=== PATIENT | male | born 1945 | race Hispanic/Latino ===

== ENCOUNTER 2017-04-14 08:34 | Outpatient (RCR) | payer MEDICARE, OTHER ==
[~2017-04-14 08:34] MED LIST: ASPIRIN EC81 MG PO; FINASTERIDE5 MG PO; LIDOCAINE VISC 2% SOLN 15 ML UDC ONE; LISINOPRIL10 MG PO; MINERAL OIL/PETROLAT/GLYCERI 6OZ BTL ONE; TAMSULOSIN HCL0.4 MG PO; TOPROL XL25 MG PO
[2017-04-14] MEDS ORDERED: LIDOCAINE VISC 2% SOLN 15 ML UDC ONE (14:04)
[2017-04-14] MEDS ORDERED: MINERAL OIL/PETROLAT/GLYCERI 6OZ BTL ONE (14:04)
== END 2017-05-02 ==
LOC: WCC 08:34
PROVIDERS: ATTEND Family Medicine
DX: T81.89XA Other complications of procedures, not elsewhere classified, initial encounter (principal); Y84.8 Other medical procedures as the cause of abnormal reaction of the patient, or of later complication, without mention of misadventure at the time of the procedure; E11.40 Type 2 diabetes mellitus with diabetic neuropathy, unspecified; E11.65 Type 2 diabetes mellitus with hyperglycemia; L03.116 Cellulitis of left lower limb; I79.8 Other disorders of arteries, arterioles and capillaries in diseases classified elsewhere; I87.2 Venous insufficiency (chronic) (peripheral); B96.89 Other specified bacterial agents as the cause of diseases classified elsewhere
CPT/HCPCS: 15271; Q4117

== ENCOUNTER → 2017-06-02 | Outpatient (RCR) | payer MEDICARE, OTHER ==
[~2017-06-02] MED LIST changes: -MINERAL OIL/PETROLAT/GLYCERI 6OZ BTL ONE
== END ==
LOC: WCC 05-05 08:30
PROVIDERS: ATTEND Family Medicine
DX: T81.89XA Other complications of procedures, not elsewhere classified, initial encounter (principal); Y84.8 Other medical procedures as the cause of abnormal reaction of the patient, or of later complication, without mention of misadventure at the time of the procedure; E11.65 Type 2 diabetes mellitus with hyperglycemia; E11.40 Type 2 diabetes mellitus with diabetic neuropathy, unspecified; L03.116 Cellulitis of left lower limb; S91.002A Unspecified open wound, left ankle, initial encounter; R60.0 Localized edema; I87.2 Venous insufficiency (chronic) (peripheral); I79.8 Other disorders of arteries, arterioles and capillaries in diseases classified elsewhere; B96.89 Other specified bacterial agents as the cause of diseases classified elsewhere; L25.1 Unspecified contact dermatitis due to drugs in contact with skin
CPT/HCPCS: 15271; 97597; G0463; Q4117

== ENCOUNTER → 2017-06-30 | Outpatient (RCR) | payer MEDICARE, OTHER ==
[~2017-06-30] MED LIST changes: -LIDOCAINE VISC 2% SOLN 15 ML UDC ONE; +MUPIROCIN 2% OINT 22 GM TUBE ONE
== END ==
LOC: WCC 06-16 08:52
PROVIDERS: ATTEND Family Medicine
DX: T81.89XA Other complications of procedures, not elsewhere classified, initial encounter (principal); Y84.8 Other medical procedures as the cause of abnormal reaction of the patient, or of later complication, without mention of misadventure at the time of the procedure; E11.65 Type 2 diabetes mellitus with hyperglycemia; E11.40 Type 2 diabetes mellitus with diabetic neuropathy, unspecified; L03.116 Cellulitis of left lower limb; I87.2 Venous insufficiency (chronic) (peripheral); I79.8 Other disorders of arteries, arterioles and capillaries in diseases classified elsewhere; B96.89 Other specified bacterial agents as the cause of diseases classified elsewhere
CPT/HCPCS: 36415; 82948; 87071; 87075; 87205

== ENCOUNTER 2017-07-21 08:19 | Outpatient (RCR) | payer MEDICARE, OTHER ==
[~2017-07-21 08:19] MED LIST changes: +LIDOCAINE VISC 2% SOLN 15 ML UDC ONE; -MUPIROCIN 2% OINT 22 GM TUBE ONE
== END 2017-07-31 ==
LOC: WCC 08:19
PROVIDERS: ATTEND Family Medicine
DX: T81.89XA Other complications of procedures, not elsewhere classified, initial encounter (principal); Y84.8 Other medical procedures as the cause of abnormal reaction of the patient, or of later complication, without mention of misadventure at the time of the procedure; E11.40 Type 2 diabetes mellitus with diabetic neuropathy, unspecified; E11.65 Type 2 diabetes mellitus with hyperglycemia; I79.8 Other disorders of arteries, arterioles and capillaries in diseases classified elsewhere; I87.2 Venous insufficiency (chronic) (peripheral)
CPT/HCPCS: 36415; 82948

== ENCOUNTER 2017-08-25 08:22 | Outpatient (RCR) | payer MEDICARE, OTHER ==
[~2017-08-25 08:22] MED LIST changes: -LIDOCAINE VISC 2% SOLN 15 ML UDC ONE; +MUPIROCIN 2% OINT 22 GM TUBE ONE
[2017-08-30] MEDS ORDERED: PRAVASTATIN SOD20 MG PO (18:07)
[2017-08-30] MEDS ORDERED: PLAVIX75 MG PO (18:07)
[2017-08-30] MEDS ORDERED: HYDROCHLOROTHIA25 MG PO (18:07)
== END 2017-08-30 ==
LOC: WCC 08:22
PROVIDERS: ATTEND Family Medicine
DX: Y84.8 Other medical procedures as the cause of abnormal reaction of the patient, or of later complication, without mention of misadventure at the time of the procedure (principal); E11.65 Type 2 diabetes mellitus with hyperglycemia; E11.40 Type 2 diabetes mellitus with diabetic neuropathy, unspecified; E78.00 Pure hypercholesterolemia, unspecified; I79.8 Other disorders of arteries, arterioles and capillaries in diseases classified elsewhere; I87.2 Venous insufficiency (chronic) (peripheral)
CPT/HCPCS: 36415; 82948

== ENCOUNTER → 2017-08-31 | Day surgery (SDC) | payer MEDICARE, OTHER ==
[2017-08-30 16:04] LABS: BASOPHILS % 0.7 % (0.0-1.0); EOSINOPHILS # (AUTO) 0.2 (0.0-0.4); EOSINOPHILS % 2.8 % (0.0-6.0); HEMATOCRIT 39.1 % (38.2-49.6); HEMOGLOBIN 13.5 g/dL (14.0-18.0); LYMPHOCYTES # (AUTO) 1.9 (1.0-3.2); LYMPHOCYTES % 30.5 % (18.0-39.1); MEAN CORPUSCULAR HEMOGLOBIN 30.7 pg (28-32); MEAN CORPUSCULAR HGB CONC 34.5 g/dL (31-35); MEAN CORPUSCULAR VOLUME 88.9 fL (81-99); MONOCYTES # (AUTO) 0.6 (0.2-0.8); MONOCYTES % 9.5 % (4.4-11.3); NEUTROPHILS # (AUTO) 3.4 (2.1-6.9); PLATELET COUNT 208 x10e3/uL (140-360); RED CELL DISTRIBUTION WIDTH 13.5 % (11.7-14.4)
[2017-08-30 16:31] LABS: ALANINE AMINOTRANSFERASE 16 IU/L (0-55); ALBUMIN/GLOBULIN RATIO 1.1 (0.8-2.0); ALKALINE PHOSPHATASE 56 IU/L (40-150); ANION GAP 10.3 mmol/L (8-16); BLOOD UREA NITROGEN 24 mg/dL (7-26); BUN/CREATININE RATIO 22 (6-25); CALCIUM 10.1 mg/dL (8.4-10.2); CARBON DIOXIDE 25 mmol/L (22-29); CHLORIDE 108 mmol/L (98-107); CHOL/HDL RATIO 4.4 (3.9-4.7); CHOLESTEROL 140 MD/DL (0-199); CREATININE, SERUM 1.09 mg/dL (0.72-1.25); EST GLOMERULAR FILTRATION RATE > 60 ML/MIN (60-); GLUCOSE 97 mg/dL (74-118); HDL CHOLESTEROL 32 MG/DL (40-60); LDL CHOLESTEROL 86 MG/DL (60-130); POTASSIUM 4.3 mmol/L (3.5-5.1); SODIUM 139 mmol/L (136-145); TRIGLYCERIDES 112 MG/DL (0-149)
[2017-08-31] VITALS (12 sets, daily range): BP systolic 110–144; BP diastolic 59–94
[~2017-08-31] VITALS: Ht 172.7 cm; Wt 94.3 kg
[~2017-08-31] MED LIST changes: +ALPRAZOLAM 0.5 MG TAB ONE; +DIPHENHYDRAMINE HCL 25 MG CAP ONE; +FENTANYL CITRATE/PF 100MCG/2 ML INJ ONE; +HEPARIN SOD (PORCINE) 1000 UNIT/ML 30ML ONE; +HEPARIN SOD/SOD CHLORIDE 2,000 ML ONE; +HYDROCHLOROTHIA25 MG PO; +IOPAMIDOL 370 MG/ML 200 ML INFUS..BTL INJ ONE; +LIDOCAINE HCL 2% LOCAL 20 ML VIAL ONE; +MIDAZOLAM HCL 2 MG/2 ML VIAL ONE; -MUPIROCIN 2% OINT 22 GM TUBE ONE; +NITROGLYCERIN/D5W 200 MCG/ML 250 ML ONE; +PLAVIX75 MG PO; +PRAVASTATIN SOD20 MG PO; +SODIUM CHLORIDE 0.9% 1000ML 1,000 ML ONE; +VERAPAMIL HCL 2.5 MG/ML 2 ML VIAL ONE
--- OUTSIDE RECORDS SUMMARY | 2017-08-31 12:35 | XMS REPORT ---
Author Author [facility] Address Unknown Phone Unavailable Care Team Providers Care Compressor Station Engineer Chief Name Role Phone SUNNY STEINBERG Unavailable Unavailable Problems This patient has no known problems. Allergies, Adverse Reactions, Alerts This patient has no known allergies or adverse reactions. Medications This patient has no known medications. Results Test Description Test Time Test Comments Text Results Atomic Results Result Comments ANKLE 3+ VIEWS LEFT [place] [id number] [place] [id number] Patient Name: GRACIELA MÉNDEZ MR #: [id number] : 1945 Age/Sex: 71/M Req # : [id number] [facility] Physician: Ordered by: SUNNY STEINBERG MD Report #: [id number] Location: [facility] Room/Bed: Procedure: [id number] DX/ANKLE 3+ VIEWS LEFT Exam Date: 01/27/17 Exam Time : 1300 REPORT STATUS: Signed PROCEDURE: ANKLE 3+ VIEWS LEFT INDICATION: Osteomyelitis COMPARISON: 01/22/16 FINDINGS: Unchanged distal left fibular and talar old fracture/deformities with loss of soft tissues of the lateral distal leg. No periosteal reaction, erosion, or abnormal soft tissue calcification. No acute fracture or dislocation. Small dorsal calcaneal spur. CONCLUSION: No Change from prior exam. No definite signs of osteomyelitis. If there is high clinical concern, consider obtaining MRI for more accurate evaluation for osteomyelitis. Dictated by: Shola Chen M.D. on 01/27/2017 at 13:42 Electronically approved by: Shola Chen M.D. on 01/27/2017 at 13:42 Dictated By: SHOLA CHEN MD 1342 Transcribed By: MARY ALICE on 01/27/17 1342 COPY TO: SUNNY STEINBERG MD
--- OUTSIDE RECORDS SUMMARY | 2017-08-31 12:35 | XMS REPORT | Continuity of Care Document ---
Author Author [facility] Organization [facility] Address [address] [place] [address] Phone Unavailable Care Team Providers Care Director Media Name Role Phone SUSANA FERRER MD PCP Insurance Providers Guarantor John Paul Benedict Address [address] [place] [address] Email PTDECLINED Payer [employer] Policy Number [id number] Subscriber's Name John Paul Benedict Relationship 18 Self / Same As Patient Group Number [id number] Group Name RETIRED Effective Date 12 Payer Medicare A & B Policy Number [id number] Subscriber's Name BenedictJohn Paul Jackman Relationship 18 Self / Same As Patient Group Number [id number] Group Name RETIRED Effective Date 12 Payer [facility] Policy Number [id number] Subscriber's Name BenedictJohn Paul Jackman Relationship 18 Self / Same As Patient Advance Directives Directive Response Recorded Date/Time Does the patient have an advance directive? No 01/18/14 7:13pm If yes, is advance directive on file with [facility]? No 01/18/14 7:13pm If not on file with [facility] will patient provide a copy? No 01/18/14 7:13pm Do you have a Directive to Physician? No 08/10/17 11:46am Do you have a Medical Power of Reconciliation Analyst? No 08/10/17 11:46am Do you have an out of hospital Do Not Resuscitate Order? No 08/10/17 11:46am Do you have any special needs we should be aware of? No 08/10/17 11:46am Do you have a support person here with you today? No 08/10/17 11:46am Did patient receive Notice of Privacy Practices? Yes 08/10/17 11:46am Did patient receive patient rights and responsibilities? Yes 08/10/17 11:46am Problems No problem information available. Medications Current Home Medications Medication Dose Units Route Directions Days Qty Instructions Start Date Aspirin (Aspirin Ec) 81 Mg Tablet.dr 81 Mg Oral Daily 30 Tab Clopidogrel Bisulfate (Plavix) 75 Mg Tablet 75 Mg Oral Daily 30 Tab Finasteride 5 Mg Tablet 5 Mg Oral Daily 30 Tab Hydrochlorothiazide 25 Mg Tablet 12.5 Mg Oral Daily 30 Tab Lisinopril 10 Mg Tablet 10 Mg Oral Daily 30 Tab Metoprolol Succinate (Toprol Xl) 25 Mg Tab.er.24h 25 Mg Oral Daily 30 Tab Pravastatin Sodium 20 Mg Tablet 20 Mg Oral Daily Tamsulosin Hcl 0.4 Mg Cap.er.24h Oral Social History No social history information available. Hospital Discharge Instructions No hospital discharge instruction information available. Plan of Care Prescriptions See Medication Section Functional Status No functional status information available. Allergies, Adverse Reactions, Alerts No known allergies. Immunizations No immunization information available. Vital Signs No vital sign information available. Results Laboratory Results Test Name Result Units Flags Reference Collection Date/Time Result Date/ Time Comments White Blood Count 5.63 x10e3/uL 4.8-10.8 01/06/2017 8:35am 01/06/2017 11:34am Red Blood Count 3.92 x10e6/uL L 4.3-5.7 01/06/2017 8:35am 01/06/2017 11: 34am Hemoglobin 12.4 g/dL L 14.0-18.0 01/06/2017 8:35am 01/06/2017 11:34am Hematocrit 35.7 % L 38.2-49.6 01/06/2017 8:35am 01/06/2017 11:34am Mean Corpuscular Volume 91.1 fL 81-99 01/06/2017 8:01/06/2017 11: 34am Mean Corpuscular Hemoglobin 31.6 pg 28-32 01/06/2017 8:3501/06/2017 11:34am Mean Corpuscular Hemoglobin Concent 34.7 g/dL -35 01/06/2017 8:01/06/2017 11:34am Red Cell Distribution Width 13.2 % 11.7-14.4 01/06/2017 8:2016 11:34am Platelet Count 217 x10e3/uL 140-360 01/06/2017 8:01/06/2017 11: 34am Neutrophils (%) (Auto) 63.7 % 38.7-80.0 01/06/2017 8:01/06/2017 11 :34am Lymphocytes (%) (Auto) 23.8 % 18.0-39.1 01/06/2017 8:01/06/2017 11 :34am Monocytes (%) (Auto) 9.1 % 4.4-11.3 01/06/2017 8:01/06/2017 11: 34am Eosinophils (%) (Auto) 2.3 % 0.0-6.0 01/06/2017 8:01/06/2017 11: 34am Basophils (%) (Auto) 0.7 % 0.0-1.0 01/06/2017 8:01/06/2017 11: 34am IM GRANULOCYTES % 0.4 % 0.0-1.0 01/06/2017 8:01/06/2017 11:34am Neutrophils # (Auto) 3.6 2.1-6.9 01/06/2017 8:01/06/2017 11: 34am Lymphocytes # (Auto) 1.3 1.0-3.2 01/06/2017 8:3501/06/2017 11: 34am Monocytes # (Auto) 0.5 0.2-0.8 01/06/2017 8:3501/06/2017 11:34am Eosinophils # (Auto) 0.1 0.0-0.4 01/06/2017 8:3501/06/2017 11: 34am Basophils # (Auto) 0.0 0.0-0.1 01/06/2017 8:3501/06/2017 11:34am Absolute Immature Granulocyte (auto 0.02 x10e3/uL 0-0.1 01/06/2017 8: 3501/06/2017 11:34am Sodium Level 137 mmol/L 136-145 01/06/2017 8:3501/06/2017 12:00pm Potassium Level 4.2 mmol/L 3.5-5.1 01/06/2017 8:3501/06/2017 12: 00pm Chloride Level 107 mmol/L 98-107 01/06/2017 8:3501/06/2017 12:00pm Carbon Dioxide Level 22 mmol/L 22-29 01/06/2017 8:3501/06/2017 12: 00pm Anion Gap 12.2 mmol/L 8-16 01/06/2017 8:3501/06/2017 12:00pm Blood Urea Nitrogen 26 mg/dL 7-26 01/06/2017 8:3501/06/2017 12:00pm Creatinine 1.16 mg/dL 0.72-1.25 01/06/2017 8:3501/06/2017 12:00pm BUN/Creatinine Ratio 22 6-25 01/06/2017 8:3501/06/2017 12:00pm Estimat Glomerular Filtration Rate > 60 ML/MIN 60- 01/06/2017 8:35 12:00pm Ranges were taken from the National Kidney Disease Education Program and the National Kidney Foundation literature. Reference ranges: 60 or greater: Normal 16-59 (for 3 consecutive months): Chronic kidney disease 15 or less: Kidney failure Glucose Level 93 mg/dL 74-118 01/06/2017 8:3501/06/2017 12:00pm Calcium Level 9.4 mg/dL 8.4-10.2 01/06/2017 8:3501/06/2017 12:00pm Total Bilirubin 0.9 mg/dL 0.2-1.2 01/06/2017 8:3501/06/2017 12:00pm Aspartate Amino Transf (AST/SGOT) 16 IU/L 5-34 01/06/2017 8:352016 12:00pm Alanine Aminotransferase (ALT/SGPT) 17 IU/L 0-55 01/06/2017 8:35am 10/2016 12:00pm Total Protein 7.2 g/dL 6.5-8.1 01/06/2017 8:35am 01/06/2017 12:00pm Albumin 4.0 g/dL 3.5-5.0 01/06/2017 8:35am 01/06/2017 12:00pm Globulin 3.2 g/dL 2.3-3.5 01/06/2017 8:35am 01/06/2017 12:00pm Albumin/Globulin Ratio 1.3 0.8-2.0 01/06/2017 8:35am 01/06/2017 12: 00pm Alkaline Phosphatase 55 IU/L 40-150 01/06/2017 8:35am 01/06/2017 12: 00pm Prealbumin 27 mg/dL 9-32 01/06/2017 8:35am 01/08/2017 5:58am Performed at: - [facility] [id number] Body Shop Mechanic: Ousmane Gaytan MD, Phone: [phone] Bedside Glucose 93 mg/dL 70-120 08/11/2017 8:37am 08/11/2017 1:56pm Meter ID: [id number] Procedures No procedure information available. Encounters Encounter Location Arrival/Admit Date Discharge/Depart Date Attending Provider Discharged [facility] 08/25/17 8:22am 08/30/17 11:59pm SUNNY STEINBERG MD Discharged [facility] 07/07/17 8:06am 07/31/17 11:59pm SUNNY STEINBERG MD Discharged [facility] 06/16/17 8:52am 06/30/17 11:59pm SUNNY STEINBERG MD Discharged [facility] 05/05/17 8:30am 06/02/17 11:59pm SUNNY STEINBERG MD Discharged [facility] 04/07/17 8:26am 05/02/17 11:59pm SUNNY STEINBERG MD Discharged [facility] 03/03/17 8:21am 04/01/17 11:59pm SUNNY STEINBERG MD Discharged [facility] 02/03/17 8:47am 03/02/17 11:59pm SUNNY STEINBERG MD Registered Clinic [facility] 01/27/17 12:46pm SUNNY STEINBERG MD Discharged [facility] 01/06/17 8:02am 01/30/17 11:59pm SUNNY STEINBERG MD
--- NOTE | 2017-08-31 16:27 | Operative Report ---
DATE OF PROCEDURE: August 31, 2017 INDICATIONS: Coronary artery disease, abnormal stress test with apical ischemia. PROCEDURES PERFORMED 1. Left heart catheterization, selective coronary angiography. 2. Percutaneous transluminal coronary angioplasty and drug-eluting stent placement to the distal left anterior descending artery. 3. Deployment of right wrist transradial band. COMPLICATIONS: None. RECOMMENDATIONS: Dual antiplatelet therapy for life. Access was obtained in the right radial artery using ultrasound guidance. A 5-Mongolian sheath was placed. Diagnostic coronary angiogram revealed patent left main. Left anterior descending artery proximal stents were widely patent. Distal left anterior descending artery 80% focal type-A lesion. The circumflex stents were widely patent. Right coronary artery proximal 50%. Remaining vessel had diffuse 20% to 30% stenosis. A decision was made to intervene on the left anterior descending artery. The patient received intravenous heparin with an ACT of 314. The left main was cannulated using a 5-Mongolian EBU 3.375 guiding catheter. A short Runthrough wire was advanced across the lesion for support. Predilatation with a 2-mm balloon following which a single 2.25 x 12 mm Synergy stent was deployed at 20 atmospheres. Excellent end result. Less than 10% residual stenosis and JEWEL-3 flow. No complications. Guidewire and sheath were removed and TR band applied. The patient was discharged home the same day. Job#: [id number]
== END | disposition home or self-care (01) ==
LOC: CATH LAB 12:32
PROVIDERS: ATTEND Internal Medicine Interventional Cardiology
DX: I25.119 Atherosclerotic heart disease of native coronary artery with unspecified angina pectoris (principal); R94.39 Abnormal result of other cardiovascular function study; Z95.5 Presence of coronary angioplasty implant and graft; Z79.02 Long term (current) use of antithrombotics/antiplatelets; Z79.82 Long term (current) use of aspirin; Z01.812 Encounter for preprocedural laboratory examination
CPT/HCPCS: 93454; C9600; 36140; 36415; 77002; 80053; 80061; 85025; 92920; 93458; C1769; J1644; J2001; J2250; J7030; Q9967

== ENCOUNTER 2017-09-15 08:35 | Outpatient (RCR) | payer MEDICARE, OTHER ==
[~2017-09-15 08:35] MED LIST changes: -ALPRAZOLAM 0.5 MG TAB ONE; -DIPHENHYDRAMINE HCL 25 MG CAP ONE; -FENTANYL CITRATE/PF 100MCG/2 ML INJ ONE; -HEPARIN SOD (PORCINE) 1000 UNIT/ML 30ML ONE; -HEPARIN SOD/SOD CHLORIDE 2,000 ML ONE; -IOPAMIDOL 370 MG/ML 200 ML INFUS..BTL INJ ONE; -LIDOCAINE HCL 2% LOCAL 20 ML VIAL ONE; -MIDAZOLAM HCL 2 MG/2 ML VIAL ONE; -NITROGLYCERIN/D5W 200 MCG/ML 250 ML ONE; -SODIUM CHLORIDE 0.9% 1000ML 1,000 ML ONE; -VERAPAMIL HCL 2.5 MG/ML 2 ML VIAL ONE
[2017-09-15] MEDS ORDERED: MINERAL OIL/PETROLAT/GLYCERI 6OZ BTL ONE (15:17)
== END 2017-09-30 ==
LOC: WCC 08:35
PROVIDERS: ATTEND Family Medicine
DX: E11.40 Type 2 diabetes mellitus with diabetic neuropathy, unspecified (principal); E11.65 Type 2 diabetes mellitus with hyperglycemia; Y84.8 Other medical procedures as the cause of abnormal reaction of the patient, or of later complication, without mention of misadventure at the time of the procedure; I87.2 Venous insufficiency (chronic) (peripheral); I79.8 Other disorders of arteries, arterioles and capillaries in diseases classified elsewhere; E78.00 Pure hypercholesterolemia, unspecified

== ENCOUNTER 2017-10-27 09:05 | Outpatient (RCR) | payer MEDICARE, OTHER | END 2017-10-30 | LOC: WCC 09:05 | PROVIDERS: ATTEND Family Medicine | DX: E11.40 Type 2 diabetes mellitus with diabetic neuropathy, unspecified (principal); E11.65 Type 2 diabetes mellitus with hyperglycemia; L03.112 Cellulitis of left axilla; I87.2 Venous insufficiency (chronic) (peripheral); R21 Rash and other nonspecific skin eruption; I79.8 Other disorders of arteries, arterioles and capillaries in diseases classified elsewhere; E78.00 Pure hypercholesterolemia, unspecified; Y84.8 Other medical procedures as the cause of abnormal reaction of the patient, or of later complication, without mention of misadventure at the time of the procedure ==

== ENCOUNTER → 2017-12-21 | Day surgery (SDC) | payer MEDICARE, OTHER ==
[~2017-12-21] MED LIST changes: +MIDAZOLAM HCL 2 MG/2 ML VIAL ONE; +OR PHACO EYE KIT ONE
== END | disposition home or self-care (01) ==
LOC: OR 13:01
PROVIDERS: ATTEND Ophthalmology
DX: H25.11 Age-related nuclear cataract, right eye (principal); G47.33 Obstructive sleep apnea (adult) (pediatric); I10 Essential (primary) hypertension; I25.10 Atherosclerotic heart disease of native coronary artery without angina pectoris; N40.0 Benign prostatic hyperplasia without lower urinary tract symptoms; Z79.82 Long term (current) use of aspirin; Z79.02 Long term (current) use of antithrombotics/antiplatelets; Z95.5 Presence of coronary angioplasty implant and graft
CPT/HCPCS: 66984; J2250; V2632

== ENCOUNTER → 2018-08-05 | Outpatient (CLI) | payer MEDICARE, OTHER ==
[~2018-08-05] MED LIST changes: +IOPAMIDOL 370 MG/ML 200 ML INFUS..BTL INJ ONE; -MIDAZOLAM HCL 2 MG/2 ML VIAL ONE; -OR PHACO EYE KIT ONE; +SODIUM CHLORIDE 0.9% 250ML 250 ML ONE
--- NOTE | 2018-08-05 15:02 | Diagnostic Imaging Report ---
CT UROGRAM Indication: Hematuria COMPARISON: None TECHNIQUE: Thin section helical scan through the abdomen and pelvis before and after the intravenous administration of 150 cc of low osmolar, non-ionic contrast by dynamic enhanced scanning protocol. Delayed images were obtained through the collecting system, ureters and bladder. 3-D reformations of the kidneys, ureters, and bladder were performed on a separate workstation. RADIATION DOSE: Total DLP: 1660.13 mGy*cm Estimated effective dose: (DLP x 0.015 x size factor) mSv CTDIvol has been reviewed. It is below the limits set by the Radiation Protocol Committee (RPC). Dose reduction techniques used: Automated exposure control, adjustment of the mAs and/or kVp according to patient size, standardized low-dose protocol, and/or iterative reconstruction technique. Findings: Lung Bases: Punctate hyperdense focus in the anterior left lower lobe abutting the major fissure may represent a calcified granuloma. There are 2 pleural-based nodules in the lateral segment of the middle lobe that measure 3 to 4 mm. Nodule in the posterior right lower lobe measures 3 mm. There is mild pulmonary air trapping suggestive of small airways disease. Mild cylindrical bronchiectasis. Visualized portion of the mediastinum is normal. Liver: Normal attenuation. Calcified nodule in segment 8 measures 6 x 10 mm. Gallbladder: Absent. Biliary tree: No ductal dilatation. Pancreas: Diffuse fatty atrophy. No mass or ductal dilatation Spleen: Normal in attenuation and size without mass Adrenal Glands: No evidence of mass. Pelvis: Bowel: Stomach and visualized portions of the small bowel and large bowel are normal in diameter with normal wall thickness. Appendix: Normal. Lymph nodes: No enlarged abdominal or periaortic lymph nodes. No enlarged mesenteric lymph nodes. A lymph node to the left of the bladder measures 7 mm (series 6, image 146). No enlarged lymph nodes along the pelvic sidewalls or in the inguinal region. Peritoneum/retroperitoneum: No free fluid or fluid collection. Bones: Mild degenerative changes of the spine. No lytic or blastic lesions. Kidneys, ureters and bladder: Unenhanced series: Right Kidney: Several intrarenal calculi measuring up to 2 mm. A cyst in the anterior interpolar region measures 1.9 x 2.1 cm. Left Kidney: Pixel-sized calculi at the corticomedullary junctions. There is a 2 mm calculus in the upper pole Bladder: Mild diffuse mural thickening. No intraluminal calculus. There is concern for a soft tissue mass in the anterior dome (series 3, image 148). Contrast enhanced series: Right Kidney: Normal enhancement. The cyst mentioned above demonstrates no evidence of enhancement or septation. There are multiple subcentimeter intracortical low attenuating lesions without visible sign of enhancement suggestive of cysts. No enhancing mass. Left Kidney: Several intracortical low attenuating lesions measuring up to 5 mm without visible signs of enhancement. No enhancing mass. Excretory phase: There is symmetric excretion of contrast into normal appearing collecting systems. The ureters are normal in diameter throughout their course. There is an eccentric filling defect in the distal left ureter measuring 2 to 3 mm (series 6, image 156). No intraluminal filling defect along the opacified portion of the right ureter. Bladder: Soft tissue mass in the anterior dome is surrounded by excreted contrast. This measures 1.3 x 2.4 cm. Prostate: Markedly enlarged, measuring 6.3 x 5.8 cm in the axial plane and 6.5 cm in craniocaudal dimension. Prostate volume is 124.2 cc. Seminal vesicles are normal in morphology. IMPRESSION: 1. Intraluminal bladder mass concerning for carcinoma. Recommend correlation with cystoscopy. A subcentimeter perivesicular lymph node bears watching to confirm stability. 2. Small left distal ureteral eccentric filling defect concerning for neoplasm. Recommend correlation with ureteroscopy. 3. Marked prostate hypertrophy. 4. Tiny bilateral intrarenal calculi. No obstructive uropathy. 5. Bilateral renal cysts, with the largest cyst in the right kidney measuring 2 cm. No solid or enhancing renal masses. 6. Tiny pulmonary nodules as described above. Recommend annual surveillance with low-dose CT of the chest to confirm stability. Thank you for your referral. Signed by: Dr. Juni Moya MD on 08/05/2018 2:58 PM
== END ==
LOC: CT 12:04
PROVIDERS: ATTEND Urology
DX: R31.0 Gross hematuria (principal)
CPT/HCPCS: 74178; J7050; Q9967

== ENCOUNTER → 2018-08-18 | Day surgery (SDC) | payer MEDICARE ==
[2018-08-16 15:18] LABS: BASOPHILS % 0.4 % (0.0-1.0); EOSINOPHILS % 0.6 % (0.0-6.0); HEMATOCRIT 35.9 % (38.2-49.6); HEMOGLOBIN 11.8 g/dL (14.0-18.0); LYMPHOCYTES # (AUTO) 1.7 (1.0-3.2); LYMPHOCYTES % 30.8 % (18.0-39.1); MEAN CORPUSCULAR HEMOGLOBIN 31.4 pg (28-32); MEAN CORPUSCULAR HGB CONC 32.9 g/dL (31-35); MEAN CORPUSCULAR VOLUME 95.5 fL (81-99); MONOCYTES # (AUTO) 0.6 (0.2-0.8); MONOCYTES % 10.8 % (4.4-11.3); NEUTROPHILS # (AUTO) 3.1 (2.1-6.9); NEUTROPHILS % 56.8 % (38.7-80.0); PLATELET COUNT 210 x10e3/uL (140-360); RED BLOOD COUNT 3.76 x10e6/uL (4.3-5.7); RED CELL DISTRIBUTION WIDTH 14.5 % (11.7-14.4)
[2018-08-16 15:31] LABS: ANION GAP 12.5 mmol/L (8-16); CALCIUM 9.9 mg/dL (8.4-10.2); CREATININE, SERUM 1.39 mg/dL (0.72-1.25); POTASSIUM 4.5 mmol/L (3.5-5.1)
--- NOTE | 2018-08-16 15:45 | Diagnostic Imaging Report ---
EXAMINATION: CHEST 2 VIEWS INDICATION: Preop for kidney stone ^PER PROTOCOL ^[id number] ^1458 ^PRE ADMIT COMPARISON: 08/23/2014 FINDINGS: TUBES and LINES: None. LUNGS: Lungs are well inflated. Lungs are clear. There is no evidence of pneumonia or pulmonary edema. PLEURA: No pleural effusion or pneumothorax. HEART AND MEDIASTINUM: The cardiomediastinal silhouette is unremarkable. BONES AND SOFT TISSUES: No acute osseous lesion. Soft tissues are unremarkable. Metallic surgical hardware in the left shoulder region. UPPER ABDOMEN: No free air under the diaphragm. IMPRESSION: No acute thoracic abnormality. Signed by: Dr. Blas Curtis M.D. on 08/16/2018 3:41 PM
[~2018-08-18] MED LIST changes: +BACTRIM DS TAB1 EACH PO; +BELLADONNA/OPIUM 60 MG SUPP PR ONE; +DEXAMETHASONE SOD PHOS INJ 4 MG/ML VIAL ONE; +FENTANYL CITRATE/PF 100MCG/2 ML INJ ONE; +FLOMAX0.4 MG PO; -IOPAMIDOL 370 MG/ML 200 ML INFUS..BTL INJ ONE; +IOPAMIDOL 610MG/1ML 300 MG/ML VIAL IV ONE; +LIDOCAINE HCL 2% LOCAL INJ 5 ML SDV VIAL INJ ONE; +METOPROLOL SUCC25 MG PO; +ONDANSETRON HCL INJ 2MG/ML 2ML 2 MG/ML VIAL ONE; +PROPOFOL IV EMULSION 10 MG/ML 20 ML VIAL ONE; +SEVOFLURANE INHAL SOLN 250 ML PEN BTL ONE; -SODIUM CHLORIDE 0.9% 250ML 250 ML ONE
[2018-08-18] MEDS: CEFAZOLIN SOD 2 GM/D5W 50ML 50 ML IV ONE ×2 (09:10→09:11)
[2018-08-18 12:00] VITALS: BP 116/78
--- NOTE | 2018-08-18 18:27 | Operative Report ---
DATE OF PROCEDURE: 08/18/2018 SURGEON: Malcom Ortiz MD SERVICE: Urology. PREOPERATIVE DIAGNOSES: 1. History of gross hematuria, now microhematuria. 2. Suspected filling defect in ureters. 3. Benign prostatic hypertrophy. POSTOPERATIVE DIAGNOSES: 1. History of gross hematuria, now microhematuria. 2. Suspected filling defect in ureters. 3. Benign prostatic hypertrophy. 4. 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 OPERATION PERFORMED: 1. Cystoscopy and bilateral retrograde pyelograms under fluoroscopic control. 2. Bilateral ureteroscopy. 3. Fulguration of bleeding point. 4. Interpretation of x-ray, radiologist is not present. 5. Supervision of fluoroscopy, radiologist is not present. CAREER MANAGER: None. ANESTHESIA: General. CLINICAL INDICATION: This is a 72-year-old patient who had gross hematuria and is brought for evaluation. CT scan questions whether there is some filling defect in the ureter. The patient was advised about the planned procedure and accepted. DESCRIPTION OF PROCEDURE AND FINDINGS: After the appropriate level of anesthesia was achieved, the patient was placed in lithotomy position, prepped and draped in the usual sterile fashion. Urethra was inspected and it is unremarkable. Bladder outlet is obstructed by enlarged prostate, composed of trilobar prostate, areas on the medial lobe are quite bleeding. The bladder itself was trabeculated extensively and multiple dilated blood vessels present in the bladder. Both ureteral orifices were identified. No tumors or foreign bodies seen. Open-ended catheters were inserted bilaterally and retrograde pyelogram did not identify clearly any filling defect or stones, and therefore, ureteroscopy was done with the flexible ureteroscope bilaterally. No intrinsic lesions were identified. This was followed by changing back to the cystoscope and fulgurating any visible bleeding point on the prostate or in the bladder. Bladder was then irrigated. The scope was removed. B and O suppository was inserted. The patient was transferred in satisfactory condition to recovery. Estimated blood loss, practically none. The patient will be followed as outpatient in the future, he may require surgery on the prostate. Malcom Ortiz MD NH/MODL /[id number]
== END | disposition home or self-care (01) ==
LOC: OR 07:38
PROVIDERS: ATTEND Urology
DX: R31.29 Other microscopic hematuria (principal); E66.9 Obesity, unspecified; G47.33 Obstructive sleep apnea (adult) (pediatric); I25.10 Atherosclerotic heart disease of native coronary artery without angina pectoris; Z95.5 Presence of coronary angioplasty implant and graft; Z87.442 Personal history of urinary calculi; Z01.810 Encounter for preprocedural cardiovascular examination; Z01.812 Encounter for preprocedural laboratory examination; Z01.811 Encounter for preprocedural respiratory examination; N40.0 Benign prostatic hyperplasia without lower urinary tract symptoms
CPT/HCPCS: 36415; 53899; 71046; 74420; 80048; 85025; 93005; C1758; J0690; J1100; J2001; J2405; J2704; Q9967

== ENCOUNTER 2018-09-02 21:29 | Emergency (ER) | payer MEDICARE, OTHER ==
[~2018-09-02] VITALS: Ht 172.7 cm; Wt 98.9 kg
[~2018-09-02 21:29] MED LIST changes: -BELLADONNA/OPIUM 60 MG SUPP PR ONE; -DEXAMETHASONE SOD PHOS INJ 4 MG/ML VIAL ONE; -FENTANYL CITRATE/PF 100MCG/2 ML INJ ONE; -IOPAMIDOL 610MG/1ML 300 MG/ML VIAL IV ONE; -LIDOCAINE HCL 2% LOCAL INJ 5 ML SDV VIAL INJ ONE; -ONDANSETRON HCL INJ 2MG/ML 2ML 2 MG/ML VIAL ONE; -PROPOFOL IV EMULSION 10 MG/ML 20 ML VIAL ONE; -SEVOFLURANE INHAL SOLN 250 ML PEN BTL ONE
--- NOTE | 2018-09-02 22:15 | NUR ---
dr elle harman spoke to dr gaviria. 20 fr us catheter ordered. 20 fr us catheter inserted using sterile technique. 625cc bright red colored urine c small clots noted. dr gaviria informed. pt tolerated procedure s complaint. reports relief of discomfort to lower abdomen p catheter inserted. urine specimen collected from specimen port and sent to lab.
[2018-09-02 22:32] LABS: BILIRUBIN,URINE 1+ (NEGATIVE); CLARITY,URINE HAZY (CLEAR); COLOR,URINE RED (YELLOW); KETONES,URINE NEGATIVE (NEGATIVE); LEUKOCYTE ESTERASE ,URINE TRACE (NEGATIVE); NITRITE,URINE POSITIVE (NEGATIVE); PROTEIN,URINE DIPSTICK 2+ (NEGATIVE); URINE UROBILINOGEN 0.2 mg/dL (0.2 - 1)
[2018-09-02 22:40] LABS: BACTERIA,URINE MANY /HPF; EPITHELIAL CELLS,URINE MANY /LPF; RBC,URINE >50 /HPF (0-5); WBC,URINE (MAN) >50 /HPF (0-5)
[2018-09-02 22:50] VITALS: BP 145/92
[2018-09-12] MEDS ORDERED: IRON PO (16:35)
== END 2018-09-02 22:57 | disposition home or self-care (01) ==
LOC: ER 21:29
DX: R33.9 Retention of urine, unspecified (principal); N30.91 Cystitis, unspecified with hematuria; N40.1 Benign prostatic hyperplasia with lower urinary tract symptoms
CPT/HCPCS: 51700; 81001; 87086; 99283

== ENCOUNTER → 2018-09-13 | Day surgery (SDC) | payer MEDICARE, OTHER ==
[2018-09-12 14:32] LABS: BASOPHILS % 0.5 % (0.0-1.0); EOSINOPHILS # (AUTO) 0.1 (0.0-0.4); EOSINOPHILS % 1.9 % (0.0-6.0); LYMPHOCYTES # (AUTO) 1.9 (1.0-3.2); LYMPHOCYTES % 29.4 % (18.0-39.1); MEAN CORPUSCULAR HEMOGLOBIN 30.8 pg (28-32); MEAN CORPUSCULAR HGB CONC 32.4 g/dL (31-35); MEAN CORPUSCULAR VOLUME 95.1 fL (81-99); MONOCYTES # (AUTO) 0.7 (0.2-0.8); MONOCYTES % 11.7 % (4.4-11.3); NEUTROPHILS # (AUTO) 3.5 (2.1-6.9); NEUTROPHILS % 55.9 % (38.7-80.0); PLATELET COUNT 240 x10e3/uL (140-360); RED BLOOD COUNT 3.89 x10e6/uL (4.3-5.7); RED CELL DISTRIBUTION WIDTH 13.6 % (11.7-14.4)
[2018-09-12 14:49] LABS: ANION GAP 11.3 mmol/L (8-16); BLOOD UREA NITROGEN 29 mg/dL (7-26); BUN/CREATININE RATIO 26 (6-25); CALCIUM 9.8 mg/dL (8.4-10.2); CARBON DIOXIDE 24 mmol/L (22-29); CHLORIDE 106 mmol/L (98-107); CREATININE, SERUM 1.11 mg/dL (0.72-1.25); EST GLOMERULAR FILTRATION RATE > 60 ML/MIN (60-); GLUCOSE 88 mg/dL (74-118); POTASSIUM 4.3 mmol/L (3.5-5.1); SODIUM 137 mmol/L (136-145)
[~2018-09-13] MED LIST changes: +BELLADONNA/OPIUM 60 MG SUPP PR ONE; +DEXAMETHASONE SOD PHOS INJ 4 MG/ML VIAL ONE; +FENTANYL CITRATE/PF 100MCG/2 ML INJ ONE; +IRON PO; +LIDOCAINE HCL 2% LOCAL INJ 5 ML SDV VIAL INJ ONE; +PHENYLEPHRINE HCL 1% 10 MG/ML VIAL ONE; +PROPOFOL IV EMULSION 10 MG/ML 20 ML VIAL ONE; +SEVOFLURANE INHAL SOLN 250 ML PEN BTL ONE; +SODIUM CHLORIDE 0.9% INJ 100 ML MINIBAG PLUS IV ONE; +TOBRAMYCIN 40 MG/ML 2ML VIAL ONE
[2018-09-13 11:40] VITALS: BP 117/60
--- NOTE | 2018-09-13 16:49 | Operative Report ---
DATE OF PROCEDURE: 09/13/2018 SURGEON: Malcom Ortiz MD SERVICE: Urology. PREOPERATIVE DIAGNOSES: 1. Urinary retention. 2. Hematuria. POSTOPERATIVE DIAGNOSES: 1. Urinary retention. 2. Hematuria. OPERATION PERFORMED: Cystoscopy and prostate removal with the plasma instrument. HAND BUFFER: None. ANESTHESIA: General. CLINICAL INDICATION: Note this is a patient, who presented with urinary retention and gross hematuria several times. He was brought for the removal of the bleeding and enlarged prostatic tissue. Procedure was discussed with the patient. Potential benefits and complications were discussed, explained, and accepted. The patient is aware that he will need a Adams following the procedure. DESCRIPTION OF PROCEDURE AND FINDINGS: After the appropriate level of anesthesia was achieved, the patient was placed in lithotomy position and prepped and draped in the usual sterile fashion. Urethra was inspected and it was unremarkable. Bladder outlet was obstructed by some irregularly irregular, large prostate with multiple small blood vessels and the bladder is trabeculated. No tumor or foreign bodies identified in the bladder. Following this, plasma instrument and resectoscope sheath was inserted and systematic removal of the prostatic tissue was done, the midline lobe first and then the lateral lobes. Following this, any visible even minimal bleeding was carefully coagulated. Bladder was then irrigated and filled up with irrigation fluid and Crede maneuver demonstrated good flow. A 22-Albanian three-way Adams catheter was inserted and connected to continuous irrigation with saline. A B and O suppository was applied and the patient was transferred in satisfactory condition to recovery room postop all this and followup was given. Malcom Ortiz MD NH/MODL /[id number]
== END | disposition home or self-care (01) ==
LOC: OR 07:16
PROVIDERS: ATTEND Urology
DX: N40.0 Benign prostatic hyperplasia without lower urinary tract symptoms (principal); R31.9 Hematuria, unspecified; R33.9 Retention of urine, unspecified; N32.89 Other specified disorders of bladder; I10 Essential (primary) hypertension; G47.33 Obstructive sleep apnea (adult) (pediatric); I25.10 Atherosclerotic heart disease of native coronary artery without angina pectoris; Z01.812 Encounter for preprocedural laboratory examination; Z87.442 Personal history of urinary calculi; Z95.5 Presence of coronary angioplasty implant and graft
CPT/HCPCS: 36415; 52601; 80048; 85025; J1100; J2001; J2370; J2704; J3260

== ENCOUNTER → 2020-09-10 | Day surgery (SDC) | payer MEDICARE, OTHER ==
[2020-09-06 10:59] LABS: BASOPHILS % 0.4 % (0.0-1.0); EOSINOPHILS # (AUTO) 0.1 (0.0-0.4); EOSINOPHILS % 0.7 % (0.0-6.0); HEMATOCRIT 26.1 % (38.2-49.6); HEMOGLOBIN 8.6 g/dL (14.0-18.0); LYMPHOCYTES # (AUTO) 2.3 (1.0-3.2); LYMPHOCYTES % 30.8 % (18.0-39.1); MEAN CORPUSCULAR HEMOGLOBIN 33.5 pg (28-32); MEAN CORPUSCULAR VOLUME 101.6 fL (81-99); MONOCYTES # (AUTO) 1.4 (0.2-0.8); NEUTROPHILS # (AUTO) 3.4 (2.1-6.9); NEUTROPHILS % 46.6 % (38.7-80.0); PLATELET COUNT 193 x10e3/uL (140-360); RED BLOOD COUNT 2.57 x10e6/uL (4.3-5.7); RED CELL DISTRIBUTION WIDTH 17.5 % (11.7-14.4)
[~2020-09-10] MED LIST changes: +ALIGN4 MG PO; +ASPIRIN81 MG PO; -BELLADONNA/OPIUM 60 MG SUPP PR ONE; -DEXAMETHASONE SOD PHOS INJ 4 MG/ML VIAL ONE; +DICYCLOMINE HCL10 MG PO; +EPHEDRINE SULFATE INJ 50 MG/ML VIAL ONE; +FAMOTIDINE20 MG PO; -PHENYLEPHRINE HCL 1% 10 MG/ML VIAL ONE; +POVIDONE IODINE 0.05% 0.05 % ML PO ONE; +RANEXA1000 MG PO; -SEVOFLURANE INHAL SOLN 250 ML PEN BTL ONE; -SODIUM CHLORIDE 0.9% INJ 100 ML MINIBAG PLUS IV ONE; -TOBRAMYCIN 40 MG/ML 2ML VIAL ONE
[2020-09-10 11:30] VITALS: BP 126/64
== END | disposition home or self-care (01) ==
LOC: OR 07:57
PROVIDERS: ATTEND Internal Medicine Gastroenterology
DX: Z12.11 Encounter for screening for malignant neoplasm of colon (principal); D12.2 Benign neoplasm of ascending colon; D12.3 Benign neoplasm of transverse colon; D12.8 Benign neoplasm of rectum; K29.50 Unspecified chronic gastritis without bleeding; K21.9 Gastro-esophageal reflux disease without esophagitis; K59.00 Constipation, unspecified; R63.4 Abnormal weight loss; G47.33 Obstructive sleep apnea (adult) (pediatric); I10 Essential (primary) hypertension; E11.9 Type 2 diabetes mellitus without complications; I25.10 Atherosclerotic heart disease of native coronary artery without angina pectoris; E78.5 Hyperlipidemia, unspecified; N40.0 Benign prostatic hyperplasia without lower urinary tract symptoms; Z01.812 Encounter for preprocedural laboratory examination; Z20.822 Contact with and (suspected) exposure to COVID-19; Z79.82 Long term (current) use of aspirin; Z98.61 Coronary angioplasty status
CPT/HCPCS: 36415; 43239; 45384; 45385; 85025; 88305; 88312; J2001; J2704; J3010; U0002; 45378

== ENCOUNTER → 2020-12-03 | Outpatient (CLI) | payer MEDICARE ==
[~2020-12-03] MED LIST changes: -EPHEDRINE SULFATE INJ 50 MG/ML VIAL ONE; -FENTANYL CITRATE/PF 100MCG/2 ML INJ ONE; -LIDOCAINE HCL 2% LOCAL INJ 5 ML SDV VIAL INJ ONE; -POVIDONE IODINE 0.05% 0.05 % ML PO ONE; -PROPOFOL IV EMULSION 10 MG/ML 20 ML VIAL ONE
== END ==
LOC: US 07:11
PROVIDERS: ATTEND Urology
DX: N28.1 Cyst of kidney, acquired (principal)
CPT/HCPCS: 76770